=== PATIENT | female | born 1940 | race Caucasian/White ===

== ENCOUNTER 2021-12-22 06:20 | Inpatient (IN) | payer MEDICARE ==
[~2021-12-22] VITALS: Ht 162.6 cm; Wt 83.9 kg
[2021-12-22 07:31] LABS: MEAN CELL VOLUME 103 fl (80.0-100.0); MEAN CORPUSCULAR HGB CONC 31 g/dl (33.0-37.0); MEAN PLATELET VOLUME 10.1 fl (7.4-10.4); PLATELET COUNT 199 K/mm3 (130-400); RED BLOOD COUNT 2.87 M/mm3 (4.10-5.30); REDCELL DISTRIBUTION WIDTH-CV 16.5 % (11.5-14.5)
[2021-12-22 07:32] LABS: HEMATOCRIT 29.6 % (37.0-47.0); HEMOGLOBIN 9.1 g/dl (12.5-16.0); MEAN CORPUSCULAR HEMOGLOBIN 32 pg (27-31)
[2021-12-22 07:39] LABS: INR 1.7 (0.8-3.0); PROTHROMBIN TIME 19.2 SECONDS (9.7-12.8)
[2021-12-22 07:41] LABS: PARTIAL THROMBOPLASTIN TIME 33.8 SECONDS (26.0-37.0)
[2021-12-22 07:45] LABS: CALCIUM 8.7 mg/dL (8.4-10.2); CREATININE, serum 2.5 mg/dL (0.57-1.11); POTASSIUM 4.3 mmol/L (3.5-4.5)
[2021-12-22] MEDS ORDERED: MIRAPEX0.5 MG PO (07:46)
[2021-12-22] MEDS ORDERED: LASIX 20MG TABL20 MG PO (07:50)
[2021-12-22] MEDS ORDERED: ZYLOPRIM 100MG100 MG PO (07:51)
[2021-12-22] MEDS ORDERED: PROAIR HFA0.09 MG/AC IH (07:51)
[2021-12-22] MEDS ORDERED: ELIQUIS 2.5 PO (07:52)
[2021-12-22] MEDS ORDERED: ASPIRIN 81M81 MG/TA2 PO (07:52)
[2021-12-22] MEDS ORDERED: TESSALON P100 MG/CAP PO (07:53)
[2021-12-22] MEDS ORDERED: LIPITOR 10MG10 MG PO (07:53)
[2021-12-22] MEDS ORDERED: FLOVENT 44MCG I13 GM IH (07:54)
[2021-12-22] MEDS ORDERED: COREG12.5 MG PO (07:54)
[2021-12-22] MEDS ORDERED: K-DUR 10 MEQ T10 MEQ PO (07:55)
[2021-12-22] MEDS ORDERED: PRILOSEC 20MG20 MG PO (07:55)
[2021-12-22 08:05] VITALS: BP 120/69; PULSE 88; TEMP 98
--- NOTE | 2021-12-22 10:07 | NUR ---
Procedure cancelled per Dr Ng.Pt to be admitted,awaiting bed assignment.Family at bedside.
--- NOTE | 2021-12-22 11:45 | NUR ---
RECIEVED REPORT FROM APURVA IN [facility].
--- NOTE | 2021-12-22 12:44 | NUR ---
PT ARRIVED TO ROOM VIA WHEELCHAIR. PT TRANSFERED TO RECLINER IN ROOM. VSS. ASSESSMENT COMPLETE.
--- NOTE | 2021-12-22 12:50 | NUR ---
Pt to room 316,report to ANTONY Gray.
[2021-12-22 14:32] LABS: CALCIUM 8.4 mg/dL (8.4-10.2); CREATININE, serum 2.51 mg/dL (0.57-1.11); POTASSIUM 4.2 mmol/L (3.5-4.5); TOTAL PROTEIN 5.6 gm/dL (6.2-8.1)
[2021-12-22 14:41] LABS: MAGNESIUM 2.2 mg/dL (1.6-2.6)
[2021-12-22 16:19] VITALS: BP 129/78; PULSE 91; TEMP 98.3
[2021-12-22 16:20] LABS: PARTIAL THROMBOPLASTIN TIME 32.8 SECONDS (26.0-37.0)
[2021-12-22 20:27] VITALS: BP 136/65; PULSE 79; TEMP 97.9
--- NOTE | 2021-12-22 20:30 | NUR ---
Initial shift assessment done- has generalized edema, edema lower ext, bilateral arm edema- pt states it looks better, pt on lasix drip at 11cc/hr, also on heparin drip at 17cc/hr-- has next hepXA at 2300 tonight. tele on, Purewick on, o2 at 2L/nc, NPO after MN for lexiscan in AM- states usually takes a Tramadol at bedtime at home-- will call [facility] for order-
[2021-12-23] VITALS (10 sets, daily range): BP systolic 105–144; BP diastolic 56–72; PULSE 63–100; TEMP 97.3–98.3
--- NOTE | 2021-12-23 06:20 | NUR ---
Quiet night- good ouput from [facility] last night,, Lasix drip at 11cc/hr, Heparin drip is now at 14cc/hr next hepxa at 10 am.
[2021-12-23 06:42] LABS: BASO % 0.4 % (0.0-2.0); EOS # 0.3 K/mm3 (0.0-0.7); EOS % 4.9 % (0.0-4.0); GRAN # 4.8 K/mm3 (1.4-6.5); GRAN % 71.5 % (42.2-75.2); LYMPH # 1.1 K/mm3 (1.2-3.4); LYMPH % 16.1 % (20.0-51.0); MEAN CELL VOLUME 106 fl (80.0-100.0); MEAN CORPUSCULAR HGB CONC 31 g/dl (33.0-37.0); MEAN PLATELET VOLUME 10.7 fl (7.4-10.4); MONO # 0.5 K/mm3 (0.1-0.6); MONO % 6.8 % (1.7-9.3); PLATELET COUNT 186 K/mm3 (130-400); REDCELL DISTRIBUTION WIDTH-CV 16.6 % (11.5-14.5)
[2021-12-23 06:48] LABS: HEMATOCRIT 28.5 % (37.0-47.0); HEMOGLOBIN 8.7 g/dl (12.5-16.0); MEAN CORPUSCULAR HEMOGLOBIN 32 pg (27-31)
[2021-12-23 07:17] LABS: CALCIUM 8.6 mg/dL (8.4-10.2); CREATININE, serum 2.35 mg/dL (0.57-1.11); MAGNESIUM 2.2 mg/dL (1.6-2.6); POTASSIUM 4.1 mmol/L (3.5-4.5)
--- NOTE | 2021-12-23 12:27 | NUR ---
mesh worker met with patient to complete discharge plan. Patients daughter Remedios ([phone]) present at bedside. Remedios completes intake as the patient is hard of hearing. Remedios states that the patient lives at home with her dog in [place]. She states that the patient is independent with her ADL's and utilizes a rollator to assist with mobility. Remedios states that the patient is on home oxygen which is managed by [facility]. PCP is Dr. Gemma Bo and she utilizes [facility] for perscriptions. Remedios states that the patient does have a DPOA-HC established listing all 3 of her daughters and has a copy of it at home. She is willing to bring a copy to the hospital next time she visits. Remedios states that since the patients last hospitalization, she has had home health services and "thinks" it is through [facility]. This SW contacted [facility] who confirmed that the patient is on their service for PT/OT needs. They started on October 30 and were seeing the patient x2 per week. Patient has been making progress and had been transitioned to x1 a week. Notifed agency that the patient will most likely come home with new HH orders. Discharge plan: Home with [facility]
[2021-12-23 14:35] LABS: PARTIAL THROMBOPLASTIN TIME 126.7 SECONDS (26.0-37.0)
--- NOTE | 2021-12-23 16:37 | NUR ---
Patient's IV in left AC infiltrated. Heparin gtt. paused for 3hrs d/t Hep Xa. results. Patient currently getting a central line placed. New heparin and lasix gtt. to be hung once patient arrives back to the floor. New heparin rate will be initiated per protocol.
--- NOTE | 2021-12-23 20:00 | NUR ---
Initial shift assessment done- alert,oriented, pleasant, VSS, Right jugular TLC dressing saturated and small amount blood on gown - will change dressing at this time,, Noelle VERMA did come and assess, does have a big clot around site- not disturbed- gauze pressure dressing applied and covered with transparent dressing- will continue to assess, Heparin drip at 12cc/hr, Lasix drip at 11cc/hr--hepxa was just drawn and sent to lab,, tele on- afib,rate controlled,, bruises to arms/chest.
[2021-12-24 00:29] VITALS: BP 114/68; PULSE 78; TEMP 97.8
[2021-12-24 03:36] LABS: MEAN CELL VOLUME 105 fl (80.0-100.0); MEAN CORPUSCULAR HGB CONC 31 g/dl (33.0-37.0); PLATELET COUNT 172 K/mm3 (130-400); RED BLOOD COUNT 2.44 M/mm3 (4.10-5.30); REDCELL DISTRIBUTION WIDTH-CV 16.5 % (11.5-14.5)
[2021-12-24 03:41] LABS: HEMATOCRIT 25.7 % (37.0-47.0); MEAN CORPUSCULAR HEMOGLOBIN 33 pg (27-31)
[2021-12-24 03:53] LABS: ALBUMIN 2.9 gm/dL (3.4-4.8); BILIRUBIN,TOTAL 0.9 mg/dL (0.2-1.2); CALCIUM 8.5 mg/dL (8.4-10.2); CREATININE, serum 2.39 mg/dL (0.57-1.11); POTASSIUM 4.2 mmol/L (3.5-4.5); TOTAL PROTEIN 5.3 gm/dL (6.2-8.1)
[2021-12-24 04:51] VITALS: BP 119/65; PULSE 81; TEMP 97.5
--- NOTE | 2021-12-24 06:07 | NUR ---
Queit night-- has been sleeping well tonight- right neck TLC dressing intact with some drainage on gauze dressing ,but not saturated as was the start of shift. Heparin drip was decreased by 100units-- so now at 1100units/hr, {11cc/hr},, lasix drip at 11cc/hr-
[2021-12-24 07:23] VITALS: BP 109/51; PULSE 71; TEMP 97.5
--- NOTE | 2021-12-24 09:01 | NUR ---
Patient sitting in recliner upon entering the room. Patient appears to be doing well. Drainage present on gauze placed over TLIJ. Patient denies any concerns at this time. Heparin gtt. and lasix gtt. still infusing. Purewick in place, patient tolerating this well.
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
[2021-12-24 11:40] VITALS: BP 90/73; PULSE 94; TEMP 97.5
--- NOTE | 2021-12-24 13:41 | NUR ---
Patient sitting in th recliner and resting. Has not addressed any concerns. Heparin gtt. held for 1hr per protocol, and decreased 200 units/hr.
[2021-12-24 15:37] VITALS: BP 113/51; PULSE 76; TEMP 98
[2021-12-24 20:34] VITALS: BP 119/52; PULSE 78; TEMP 98
--- NOTE | 2021-12-24 23:42 | NUR ---
HepXa drawn @2230 0.29, rate increased to 1000 units/hr @2335 per protocol, next level ordered for 0702
[2021-12-25] VITALS (7 sets, daily range): BP systolic 91–124; BP diastolic 44–79; PULSE 66–114; TEMP 97.8–98.3
[2021-12-25 06:36] LABS: MEAN CELL VOLUME 108 fl (80.0-100.0); MEAN CORPUSCULAR HGB CONC 30 g/dl (33.0-37.0); MEAN PLATELET VOLUME 10.7 fl (7.4-10.4); PLATELET COUNT 184 K/mm3 (130-400); REDCELL DISTRIBUTION WIDTH-CV 16.5 % (11.5-14.5)
[2021-12-25 06:44] LABS: HEMOGLOBIN 8.2 g/dl (12.5-16.0); MEAN CORPUSCULAR HEMOGLOBIN 33 pg (27-31)
[2021-12-25 06:58] LABS: ALBUMIN 2.9 gm/dL (3.4-4.8); BILIRUBIN,TOTAL 1.1 mg/dL (0.2-1.2); CALCIUM 8.8 mg/dL (8.4-10.2); CREATININE, serum 2.43 mg/dL (0.57-1.11); POTASSIUM 4.1 mmol/L (3.5-4.5); TOTAL PROTEIN 5.6 gm/dL (6.2-8.1)
--- NOTE | 2021-12-25 08:13 | NUR ---
Patient sitting in bed eating breakfast upon entering the room. Patient denies any concerns at this time. Heparin gtt. and Lasix gtt. both running at ordered rates. Next Hep Xa scheduled for 1135. Morning medications administered. Patient has call light w/in reach. Purewick in place for urinary incontinence/frequency d/t lasix gtt.
--- NOTE | 2021-12-25 18:38 | NUR ---
Heparin gtt. discontinued per orders. Patient doing well and currently sitting in the recliner. Patient has no concerns.
--- NOTE | 2021-12-25 22:41 | NUR ---
ALERT ANDO X4. DENIES SOA, CHEST PAIN OR DIZZY. EDEMA NOTED.LASIX GTT DC, IV PUSH STARTED. TELE-AFIB. 2L O2. PUEWICK IN OF THE NIGHT. POC DISCUSSED. CALL LIGHT WI REACH.
[2021-12-26 04:02] VITALS: BP 103/58; PULSE 87; TEMP 98.2
--- NOTE | 2021-12-26 05:44 | NUR ---
RESTED THROUGH THE NIGHT WITHOUT INCIDENT. LABS DRAW FROM TRIPLE IJ THIS AM. NEEDS MET.
[2021-12-26 07:02] LABS: BASO # 0.1 K/mm3 (0.0-0.2); BASO % 0.8 % (0.0-2.0); EOS # 0.3 K/mm3 (0.0-0.7); EOS % 4.4 % (0.0-4.0); GRAN # 4.5 K/mm3 (1.4-6.5); GRAN % 72.2 % (42.2-75.2); LYMPH # 0.9 K/mm3 (1.2-3.4); LYMPH % 13.8 % (20.0-51.0); MEAN CELL VOLUME 105 fl (80.0-100.0); MEAN CORPUSCULAR HGB CONC 31 g/dl (33.0-37.0); MEAN PLATELET VOLUME 10.8 fl (7.4-10.4); MONO # 0.5 K/mm3 (0.1-0.6); MONO % 8.6 % (1.7-9.3); PLATELET COUNT 182 K/mm3 (130-400); RED BLOOD COUNT 2.47 M/mm3 (4.10-5.30); REDCELL DISTRIBUTION WIDTH-CV 16.5 % (11.5-14.5)
[2021-12-26 07:08] LABS: HEMATOCRIT 25.8 % (37.0-47.0); MEAN CORPUSCULAR HEMOGLOBIN 32 pg (27-31)
[2021-12-26 07:16] LABS: CREATININE, serum 2.26 mg/dL (0.57-1.11)
[2021-12-26 07:41] VITALS: BP 100/56; PULSE 65; TEMP 97.5
--- NOTE | 2021-12-26 10:09 | NUR ---
PATIENT RESTING IN BED. COMPLAINTS OF LACK OF SLEEP DUE TO FREQUENT URINATION. LUNGS CLEAR. SWALLOWS PILLS WHOLE WITH SIPS OF WATER. FIRM, WARM, AND RED AREA SURROUNDING LEFT ELBOW, NO COMPLAINTS OF PAIN. PATIENT STATES SHE CAN FEEL IT IF THERE IS STILL AN IV IN THAT LOCATION. PITTING EDEMA IN LOWER EXTREMITIES UP TO TRUNK. PATIENT TO WORK WITH THERAPY. PATIENT STATES THEY ARE MAKING URINE WITH NO PAIN OR DISCOMFORT. LASIX DRIP CHANGED TO IVP LASIX. WILL RE WRAP LLE WITH ELSY BANDAGES PER PHYSCIAN ORDER.
[2021-12-26 11:34] VITALS: BP 110/59; PULSE 101; TEMP 97.2
[2021-12-26 15:09] VITALS: BP 102/49; PULSE 85; TEMP 97.6
--- NOTE | 2021-12-26 17:37 | NUR ---
PATIENT STATING THAT SHE FEELS MUCH BETTER TODAY. NO COMPLAINTS OF PAIN, NO DIFFICULTY BREATHING. NO PRESSURE INCREASING FROM FLUID. ASKED THAT ONLY LLE BE ELSY WRAPPED. LUE AT ELBOW RED, SWOLLEN, AND FIRM. WARM COMPRESS OR ICE IF COMPLAINTS OF PAIN. AMBULATED WELL WITH THERAPY. ENCOURAGE TO USE BEDSIDE COMMODE OR TOLIET FOR VOIDING, PUREWICK NOT A RECOMMENDED SNF SOLUTION. PATIENT INDEPENDENT AT HOME.
[2021-12-26 19:50] VITALS: BP 90/47; PULSE 76; TEMP 98
[2021-12-26 23:20] VITALS: BP 98/58; PULSE 62; TEMP 97.5
[2021-12-27] VITALS (16 sets, daily range): BP systolic 90–995; BP diastolic 30–63; PULSE 62–106; TEMP 97.4–98.3
[2021-12-27 04:38] LABS: BASO % 0.5 % (0.0-2.0); EOS # 0.3 K/mm3 (0.0-0.7); EOS % 4.5 % (0.0-4.0); GRAN # 4.2 K/mm3 (1.4-6.5); GRAN % 70.7 % (42.2-75.2); LYMPH # 0.9 K/mm3 (1.2-3.4); LYMPH % 14.5 % (20.0-51.0); MEAN CELL VOLUME 105 fl (80.0-100.0); MEAN CORPUSCULAR HGB CONC 31 g/dl (33.0-37.0); MEAN PLATELET VOLUME 10.4 fl (7.4-10.4); MONO # 0.6 K/mm3 (0.1-0.6); MONO % 9.5 % (1.7-9.3); PLATELET COUNT 180 K/mm3 (130-400); RED BLOOD COUNT 2.34 M/mm3 (4.10-5.30); REDCELL DISTRIBUTION WIDTH-CV 16.5 % (11.5-14.5)
[2021-12-27 04:56] LABS: HEMATOCRIT 24.5 % (37.0-47.0); HEMOGLOBIN 7.6 g/dl (12.5-16.0); MEAN CORPUSCULAR HEMOGLOBIN 32 pg (27-31)
[2021-12-27 04:59] LABS: CALCIUM 8.9 mg/dL (8.4-10.2); CREATININE, serum 2.45 mg/dL (0.57-1.11); MAGNESIUM 1.9 mg/dL (1.6-2.6); POTASSIUM 4.1 mmol/L (3.5-4.5)
--- NOTE | 2021-12-27 06:36 | NUR ---
pt on 2L O2 tonight, requested pain med @ HS x1, slept fairly well tonight. TLIJ in right neck patent/secure.
--- NOTE | 2021-12-27 10:30 | NUR ---
PATIENT RESTING IN BED. NO COMPLAINTS OF PAIN. FIRMNESS SURROUNDING LEFT ELBOW REDUCED DISTALLY, PROXIMAL STILL FIRM, WARM AND RED. SOME RED STREAKING ON THE INNER BEND OF THE ELBOW. UNLEAR IF MOISTURE RELATED OR FROM REMOVED IV INFILTRATION SITE. PATIENT EXPRESSES FEELING WEAK AND MORE TIRED THIS MORNING. LOWER EXTREMITIES UNWRAPPED, WILL REWRAP LATER IN THE MORNING. WORKED WITH THERAPY. REPORTS OF LOOSE STOOLS FROM PCT. SWALLOWED PILLS WHOLE WITH WATER, NO CONCERNS.
[2021-12-27 12:20] LABS: ARTERIAL BLD GAS O2 SATURATION 96.9 % (92-100); ARTERIAL BLD GAS TCO2 CT 45.9; ARTERIAL BLOOD GAS BASE EXCESS 16.6 (-2-2); ARTERIAL BLOOD GAS HCO3 43.6 meq/L (22-26); ARTERIAL BLOOD GAS PO2 110.6 mmHg (80-100); ARTERIAL BLOOD GAS pH 7.39 (7.35-7.45)
--- NOTE | 2021-12-27 12:33 | NUR ---
PATIENT RESTING IN BED, REVIEWED BLOOD ADMIN REACTION SYMPTOMS. VERIFIED UNIT, STARTED AT 60MLS/HR WITH SALINE FLUSH BAG HANGING. REMINED BEDSIDE FOR FIRST 20MIN OF ADMINISTRATION. WILL MONITOR PATIENT STATUS.
--- NOTE | 2021-12-27 19:04 | NUR ---
PATIENT RESTING COMFORTABLY IN BED. NO COMPLAINTS OF PAIN. ONE UINT OF PRBC GIVEN TODAY. NO REACTIONS NOTED. BPS VERY SOFT TODAY. PROVIDER INITIATED PARAMETERS FOR LASIX, JARDIANCE AND COREG. PATIENT ASYMPTOMATIC WITH LOW PRESSURES. BIPAP TRIALS AT NIGHT.
[2021-12-28 03:59] VITALS: BP 107/53; PULSE 74; TEMP 98.3
--- NOTE | 2021-12-28 05:44 | NUR ---
RESTED THROUGH THE NIGHT WITHOUT INCIDENT. PT REFUSED BIPAP TRIAL OVER NIGHT. ATTEMPTED BY RT TWICE.
[2021-12-28 06:09] LABS: BASO # 0.1 K/mm3 (0.0-0.2); BASO % 0.8 % (0.0-2.0); EOS # 0.4 K/mm3 (0.0-0.7); EOS % 5.6 % (0.0-4.0); GRAN # 4.7 K/mm3 (1.4-6.5); GRAN % 71.9 % (42.2-75.2); LYMPH # 0.8 K/mm3 (1.2-3.4); LYMPH % 11.4 % (20.0-51.0); MEAN CELL VOLUME 107 fl (80.0-100.0); MEAN CORPUSCULAR HGB CONC 30 g/dl (33.0-37.0); MEAN PLATELET VOLUME 10.7 fl (7.4-10.4); MONO # 0.7 K/mm3 (0.1-0.6); PLATELET COUNT 185 K/mm3 (130-400); RED BLOOD COUNT 2.86 M/mm3 (4.10-5.30); REDCELL DISTRIBUTION WIDTH-CV 18.7 % (11.5-14.5)
[2021-12-28 06:11] LABS: HEMATOCRIT 30.6 % (37.0-47.0); HEMOGLOBIN 9.1 g/dl (12.5-16.0); MEAN CORPUSCULAR HEMOGLOBIN 32 pg (27-31)
[2021-12-28 06:21] LABS: CALCIUM 8.9 mg/dL (8.4-10.2); CREATININE, serum 2.4 mg/dL (0.57-1.11); POTASSIUM 3.8 mmol/L (3.5-4.5)
[2021-12-28 07:29] VITALS: BP 105/60; PULSE 51; TEMP 97.7
--- NOTE | 2021-12-28 11:19 | NUR ---
PATIENT WORKED WITH THERAPY THIS MORNING. SITTING UPRIGHT IN CHAIR. LEGS ELEVATED. LEGS WILL BE REWRAPPED WITH ELSY BANDAGES. PITTING EDEMA IMPROVED. PRODUCTIVE COUGH THIS MORNING. NO COMPLAINTS OF PAIN OR SHORTNESS OF BREATH. PLAN TO DISCHARGE TO SNF TODAY OR TOMORROW, PENDING ACCEPTANCE. PURWICK IN PLACE, PATIENT UNWILLING TO REMOVE FOR EASE OF CONSTANT URINATION FROM LASIX. PATIENT NOT CURRENTLY ALLOWING AUTHOR TO VIEW BOTTOM OR BACK. WILL ATTEMPT WITH REAMBULATION BACK TO BED LATER.
[2021-12-28 11:43] VITALS: BP 96/52; PULSE 63; TEMP 98.5
--- NOTE | 2021-12-28 14:15 | NUR ---
Ditch Digger spoke with Sarai, IPR Director who advised she is following patient. SW met with patient who stated she was agreeable to rehab when SW explained what that entails, however patient states she just wants out of here.
--- NOTE | 2021-12-28 15:23 | NUR ---
Ux Researcher collaborated with Sarai, IPR Director who advised she is going to decline patient at this time. Patient likely not able to tolerate three hours of therapy daily. Patient suggested Sarai call her daughter, Remedios to review discharge planning options. SW contacted Remedios and reviewed other rehab options. Remedios would like referrals sent to [facility] and [facility]. Patient has been to [facility] before. Remedios advised if both these places will not accept, she would be open to SNFs in [place]. Discharge Plan: SNF vs [facility]
[2021-12-28 15:51] VITALS: BP 92/42; PULSE 74; TEMP 97.3
--- NOTE | 2021-12-28 16:36 | NUR ---
PATIENT HAS REDNESS AND SKIN DEBRIS IN LOWER ABDOMEN SKIN FOLDS AND JUNCTURE OF INNER THIGHS. MOISTURE RELATED. MOSITURE BARRIER CREAM AND POWDER APPLIED. PATIENT ALSO HAS NON-BLANCHABLE REDNESS ON SACRUM. WITH BLANCHABLE REDNESS ON SURROUNDING ANUS. PATIENT EDUCATED, TURNING AND WEDGES APPLIED TO RELIEVE PRESSURE. WRAPS APPLIED TO B/L LLE FROM TOES TO KNEES. HEELS FLOATED. PROVIDER NOTIFIED. AUTHOR UNCOMFORTABLE WITH APPLYING MEPALEX FOAM DRESSING TO SACRUM, PATIENT HAVING MOISTURE SKIN ISSUES.
--- NOTE | 2021-12-28 17:42 | NUR ---
PATIENT AMBULATED TO AND FROM RECLINER. BOTTOM RED, NON-BLANCHABLE ON SACRUM. PATIENT EDUCATED TO TURN AND REPOSITION EVERY 2 HOURS. WITH PILLOWS UNDER HIPS. INCREASED PRODUCTIVE COUGH TODAY. DID NOT TOLERATE BIPAP OVER NIGHT. PLAN TO TRANSFER TO [facility] OR [facility] IN THE NEXT DAY OR TWO LONG H&H STAY STABLE. STOOL OCCULT NEGATIVE. NO SIGNIFICANT EVENTS THIS SHIFT.
[2021-12-28 19:55] VITALS: BP 111/43; PULSE 64; TEMP 97.6
[2021-12-28 23:14] VITALS: BP 99/47; PULSE 71; TEMP 98
[2021-12-29 03:52] VITALS: BP 111/54; PULSE 79; TEMP 97.8
--- NOTE | 2021-12-29 05:39 | NUR ---
PATIENT CONTINUES NOT TO WEAR B-PAP AT NIGHT, INSTEAD USING 1L 02 VIA NC. NO S/S OF SOB OR DISTRESS NOTED. PATIENT WAS SLIGHTLY CONFUSED THIS MORNING WITH MED PASS. ABLE TO REDIRECT PATIENT. TURNING AND REPOSITIONING ENCORUAGED THROUGHOUT SHIFT. APPLIED POWDER TO FOLDS ALSO PATIENT WEARING BREIF AND REFUSING TO MOVE. BILAT LE ELEVATED ON 2 PILLOWS WHILE SLEEPING. WILL CONTINUE TO MONITOR THROUGHOUT SHIFT.
[2021-12-29 06:02] LABS: BASO % 0.4 % (0.0-2.0); EOS # 0.4 K/mm3 (0.0-0.7); EOS % 5.2 % (0.0-4.0); GRAN % 73.8 % (42.2-75.2); LYMPH # 0.8 K/mm3 (1.2-3.4); LYMPH % 11.4 % (20.0-51.0); MEAN CELL VOLUME 108 fl (80.0-100.0); MEAN CORPUSCULAR HGB CONC 29 g/dl (33.0-37.0); MEAN PLATELET VOLUME 10.5 fl (7.4-10.4); MONO # 0.6 K/mm3 (0.1-0.6); MONO % 8.9 % (1.7-9.3); PLATELET COUNT 191 K/mm3 (130-400); RED BLOOD COUNT 2.91 M/mm3 (4.10-5.30); REDCELL DISTRIBUTION WIDTH-CV 17.6 % (11.5-14.5)
[2021-12-29 06:06] LABS: HEMATOCRIT 31.3 % (37.0-47.0); HEMOGLOBIN 9.2 g/dl (12.5-16.0); MEAN CORPUSCULAR HEMOGLOBIN 32 pg (27-31)
[2021-12-29 06:22] LABS: CALCIUM 8.8 mg/dL (8.4-10.2); CREATININE, serum 2.34 mg/dL (0.57-1.11); POTASSIUM 3.9 mmol/L (3.5-4.5)
--- NOTE | 2021-12-29 06:30 | NUR ---
Called senior controls technician Darvin Hernandez in regards to critical C02 42 and chloride 88. left message pending call back.
[2021-12-29 07:17] VITALS: BP 125/83; PULSE 76; TEMP 97.7
--- NOTE | 2021-12-29 10:37 | NUR ---
PT WAS ADJUSTED TO SIT UP IN BED TO EAT BREAKFAST THIS MORNING. TOOK MORNING MEDICATIONS WELL. ALERT AND ORIENTED X4. ON TELEMETRY AFIB, CONTROLLED.
[2021-12-29] MEDS ORDERED: JARDIANCE10 PO (10:55)
[2021-12-29] MEDS ORDERED: DIAMOX 250MG250 MG PO (10:55)
--- NOTE | 2021-12-29 11:49 | NUR ---
REPORT GIVEN TO RN AT [facility] [place] THIS MORNING.
--- NOTE | 2021-12-29 12:52 | NUR ---
DISCONTINUED CENTRAL LINE BEFORE DISCHARGE. PATIENT TOLERATED WELL. CATHETER TIP INTACT. HELD PRESSURE FOR 10 MINUTES UNTIL HEMOSTASIS ACHIEVED. PATIENT FLAT TIME COMPLETE.
--- NOTE | 2021-12-29 12:56 | NUR ---
AGREE WITH TAYLORS'S ASSESSMENTS AND PROCEEDURES COMPLETED. PT TOLERATED WELL.
--- NOTE | 2021-12-29 13:14 | NUR ---
Middleware Developer received a voicemail from patient's daughter requesting referrals be sent to [facility] as she would prefer patient stay in [place] as her sister lives in [place] as that's where her clinical trials specialist is located. [facility] Francheska from [facility] contacted VANDANA and advised they can accept patient today. VANDNAA met with patient and patient's daughter, Remedios at bedside and this is their preference. VANDANA presented and reviewed IM form with patient who verbalized understanding and provided signature. VANDANA placed form in chart then provided copy to patient. VANDANA spoke with Francheska and set transport time for 1230. VANDANA also obtained information for patient's secondary insurance provider [employer] and provided it to Francheska who advised her team ran this coverage and it will pickers material handlers the 20% that Medicare does not cover after day 7. Patient used some of her skilled days at [facility]. VANDANA contacted [facility] and obtained the number of days, then provided it to Francheska. VANDANA faxed negative covid results and discharge orders to Francheska at [facility]. VANDANA contacted Lindsay at [facility] and left her a message that patient discharged to a different facility based on their preferences. Discharge Plan: [facility]
== END 2021-12-29 13:08 | DRG 291 ==
LOC: COL.CAR 06:20 → MEDICAL 13:27 → COL.CAR 15:23 → MEDICAL 15:24
PROVIDERS: Family Medicine; Internal Medicine Cardiovascular Disease; Physician Assistant; Surgery; ADMIT Family Medicine
PROC: 05HM33Z Insertion of Infusion Device into Right Internal Jugular Vein, Percutaneous Approach (ICD-10-PCS; principal; 2021-12-23 16:30)
PROC: 5A09357 Assistance with Respiratory Ventilation, Less than 24 Consecutive Hours, Continuous Positive Airway Pressure (ICD-10-PCS; 2021-12-27)
DX: I13.0 Hypertensive heart and chronic kidney disease with heart failure and stage 1 through stage 4 chronic kidney disease, or unspecified chronic kidney disease (principal); I50.23 Acute on chronic systolic (congestive) heart failure; J96.11 Chronic respiratory failure with hypoxia; N17.9 Acute kidney failure, unspecified; E87.3 Alkalosis; I48.20 Chronic atrial fibrillation, unspecified; Z66 Do not resuscitate; I25.10 Atherosclerotic heart disease of native coronary artery without angina pectoris; N18.9 Chronic kidney disease, unspecified; K21.9 Gastro-esophageal reflux disease without esophagitis; E78.5 Hyperlipidemia, unspecified; M10.9 Gout, unspecified; G25.81 Restless legs syndrome; D53.9 Nutritional anemia, unspecified; K76.1 Chronic passive congestion of liver; I42.9 Cardiomyopathy, unspecified; Z20.822 Contact with and (suspected) exposure to COVID-19; Z23 Encounter for immunization
CPT/HCPCS: 99223-AI; 99232-AI; 99233-AI; 99239; A9270; A9500; J1644; J1940; J2785; P9016

== ENCOUNTER → 2022-01-01 | Outpatient (REF) ==
[~2022-01-01] MED LIST: ASPIRIN 81M81 MG/TA2 PO; COREG12.5 MG PO; DIAMOX 250MG250 MG PO; ELIQUIS 2.5 PO; FLOVENT 44MCG I13 GM IH; JARDIANCE10 PO; K-DUR 10 MEQ T10 MEQ PO; LASIX 20MG TABL20 MG PO; LIPITOR 10MG10 MG PO; MIRAPEX0.5 MG PO; PRILOSEC 20MG20 MG PO; PROAIR HFA0.09 MG/AC IH; TESSALON P100 MG/CAP PO; ZYLOPRIM 100MG100 MG PO
[2022-01-01 15:07] LABS: BASO # 0.1 K/mm3 (0.0-0.2); BASO % 0.8 % (0.0-2.0); EOS # 0.3 K/mm3 (0.0-0.7); EOS % 4.6 % (0.0-4.0); GRAN # 4.6 K/mm3 (1.4-6.5); GRAN % 74.1 % (42.2-75.2); LYMPH # 0.5 K/mm3 (1.2-3.4); LYMPH % 8.8 % (20.0-51.0); MEAN CELL VOLUME 104 fl (80.0-100.0); MEAN CORPUSCULAR HGB CONC 31 g/dl (33.0-37.0); MEAN PLATELET VOLUME 10.6 fl (7.4-10.4); MONO # 0.7 K/mm3 (0.1-0.6); MONO % 11.4 % (1.7-9.3); PLATELET COUNT 203 K/mm3 (130-400); RED BLOOD COUNT 3.07 M/mm3 (4.10-5.30); REDCELL DISTRIBUTION WIDTH-CV 17.8 % (11.5-14.5)
[2022-01-01 15:15] LABS: HEMATOCRIT 31.8 % (37.0-47.0); HEMOGLOBIN 9.7 g/dl (12.5-16.0); MEAN CORPUSCULAR HEMOGLOBIN 32 pg (27-31)
[2022-01-01 15:36] LABS: CALCIUM 8.5 mg/dL (8.4-10.2); CREATININE, serum 2.6 mg/dL (0.57-1.11); POTASSIUM 3.5 mmol/L (3.5-4.5)
== END ==
LOC: ZCOL.LAB 10:04
PROVIDERS: Internal Medicine
DX: I50.23 Acute on chronic systolic (congestive) heart failure (principal)

== ENCOUNTER → 2022-01-06 | Outpatient (REF) ==
[2022-01-06 08:50] LABS: CREATININE, serum 2.21 mg/dL (0.57-1.11); POTASSIUM 3.7 mmol/L (3.5-4.5)
== END ==
LOC: ZCOL.LAB 08:16
PROVIDERS: Neurological Surgery
DX: I13.0 Hypertensive heart and chronic kidney disease with heart failure and stage 1 through stage 4 chronic kidney disease, or unspecified chronic kidney disease (principal); N17.9 Acute kidney failure, unspecified; N18.9 Chronic kidney disease, unspecified; I50.9 Heart failure, unspecified

== ENCOUNTER → 2022-02-23 | Outpatient (CLI) | payer MEDICARE ==
[2022-02-23 20:11] LABS: BASO % 0.4 % (0.0-2.0); EOS # 0.3 K/mm3 (0.0-0.7); EOS % 3.9 % (0.0-4.0); GRAN # 6.2 K/mm3 (1.4-6.5); GRAN % 80.8 % (42.2-75.2); LYMPH # 0.6 K/mm3 (1.2-3.4); LYMPH % 8.1 % (20.0-51.0); MEAN CELL VOLUME 105 fl (80.0-100.0); MEAN CORPUSCULAR HGB CONC 32 g/dl (33.0-37.0); MEAN PLATELET VOLUME 10.3 fl (7.4-10.4); MONO # 0.5 K/mm3 (0.1-0.6); MONO % 6.5 % (1.7-9.3); PLATELET COUNT 283 K/mm3 (130-400); REDCELL DISTRIBUTION WIDTH-CV 14.8 % (11.5-14.5)
[2022-02-23 20:12] LABS: HEMATOCRIT 25.1 % (37.0-47.0); HEMOGLOBIN 8.1 g/dl (12.5-16.0); MEAN CORPUSCULAR HEMOGLOBIN 34 pg (27-31)
[2022-02-23 20:50] LABS: BILIRUBIN,TOTAL 0.9 mg/dL (0.2-1.2); CALCIUM 8.6 mg/dL (8.4-10.2); CREATININE, serum 2.63 mg/dL (0.57-1.11); POTASSIUM 3.6 mmol/L (3.5-4.5)
== END ==
LOC: ZCOL.LAB 16:40
PROVIDERS: Internal Medicine
DX: I50.23 Acute on chronic systolic (congestive) heart failure (principal)

== ENCOUNTER 2022-03-31 09:24 | Inpatient (IN) | payer MEDICARE ==
[2022-03-31] VITALS (60 sets, daily range): BP systolic 74–98; BP diastolic 41–68; PULSE 60–86; TEMP 96.2–98.1; O2SAT 90–99
[~2022-03-31] VITALS: Ht 162.6 cm; Wt 107.3 kg
[2022-03-31 09:47] LABS: BASO % 0.1 % (0.0-2.0); EOS # 0.3 K/mm3 (0.0-0.7); EOS % 4.3 % (0.0-4.0); GRAN # 5.6 K/mm3 (1.4-6.5); GRAN % 79.5 % (42.2-75.2); LYMPH # 0.5 K/mm3 (1.2-3.4); LYMPH % 7.3 % (20.0-51.0); MEAN CELL VOLUME 109 fl (80.0-100.0); MEAN CORPUSCULAR HGB CONC 31 g/dl (33.0-37.0); MEAN PLATELET VOLUME 10.8 fl (7.4-10.4); MONO # 0.6 K/mm3 (0.1-0.6); MONO % 8.2 % (1.7-9.3); PLATELET COUNT 189 K/mm3 (130-400)
[2022-03-31 09:52] LABS: HEMATOCRIT 21.8 % (37.0-47.0); MEAN CORPUSCULAR HEMOGLOBIN 34 pg (27-31)
[2022-03-31 09:54] LABS: HEMOGLOBIN 6.7 g/dl (12.5-16.0)
[2022-03-31 10:03] LABS: ALBUMIN 2.8 gm/dL (3.4-4.8); BILIRUBIN,TOTAL 0.7 mg/dL (0.2-1.2); CALCIUM 8.4 mg/dL (8.4-10.2); CREATININE, serum 5.49 mg/dL (0.57-1.11); TOTAL PROTEIN 5.8 gm/dL (6.2-8.1)
[2022-03-31 14:26] LABS: HEMATOCRIT 24.4 % (37.0-47.0); HEMOGLOBIN 7.9 g/dl (12.5-16.0)
[2022-03-31 14:32] LABS: COLLECTION METHOD CLEAN CATCH
[2022-03-31] MEDS ORDERED: PRILOTC (14:42)
[2022-03-31] MEDS ORDERED: NEURONTIN100 MG/CAP PO (14:42)
[2022-03-31] MEDS ORDERED: MELATIN 3 MG-11 TAB PO (14:44)
[2022-03-31] MEDS ORDERED: TYLENOL 325MG325 MG PO (14:44)
[2022-03-31] MEDS ORDERED: NYSTATIN OR100 MU/ML PO (14:44)
[2022-03-31 14:47] LABS: MUCOUS Present (NOT PRESENT); PH 5 (5-8); SQUAMOUS EPITHELIAL 0-2 /hpf (0-10); URINE APPEARANCE Hazy (CLEAR/HAZY); URINE BACTERIA Moderate /hpf (NONE SEEN); URINE BLOOD Negative (NEGATIVE); URINE COLOR Yellow (YELLOW); URINE GLUCOSE Negative (NEGATIVE); URINE KETONE Negative (NEGATIVE); URINE NITRATE Negative (NEGATIVE); URINE PROTEIN(semi-quant) 2+ (NEGATIVE); URINE UROBILINOGEN Negative (NEGATIVE)
--- NOTE | 2022-03-31 19:50 | NUR ---
Pt. laying in bed with eyes closed respirations shallow. BP low, and difficulty getting temp. DANYELL Reese notified. Pt.'s daughter informed of pt.'s condition. DANYELL Reese also called pt.'s daughter. Shift assessment complete. Pt. is not very responsive, requiring sturnal chest rub to arouse pt. Pt. does moan and gimice from time to time. Unable to give pain meds d/t low BP. Will monitor.
--- NOTE | 2022-03-31 19:57 | NUR ---
Attempted to get a temp on pt. Axillary at 89.9. Used temporal- 95.1. Mary Ann notified. Applied warm blankets. Waiting for bear hugger.
--- NOTE | 2022-03-31 20:10 | NUR ---
Yehuda oh placed on pt.
--- NOTE | 2022-03-31 22:00 | NUR ---
Pt. not improving. Decision to transfter to ICU. Daughter called and informed of transfer. report called to ANTONY Worrell.
--- NOTE | 2022-03-31 22:30 | NUR ---
Pt. transfurred to ICU 8.
--- NOTE | 2022-03-31 22:45 | NUR ---
PT ARRIVED TO ICU ROOM VIA BED. MOVED TO ICU BED WITH SLIDING BOARD. CONNECTED TO ICU MONITORING. VSS, TEMP LOW AT 96.3, ROLAN HUGGER REPLACED (HAD BEEN USED UPSTAIRS). NS TO FELICIA PICC, LEVOPHED READY TO START WHEN NEEDED. WILL CONTINUE TO MONITOR.
[2022-04-01] VITALS (1439 sets, daily range): BP systolic 93–102; BP diastolic 51–69; PULSE 76–93; TEMP 96.7–98.4; O2SAT 72–100
--- NOTE | 2022-04-01 01:08 | NUR ---
REPORT GIVEN TO ANTONY HERMAN TO ASSUME CARE OF PT AT THIS TIME.
[2022-04-01 05:33] LABS: MEAN CORPUSCULAR HGB CONC 32 g/dl (33.0-37.0); MEAN PLATELET VOLUME 10.5 fl (7.4-10.4); PLATELET COUNT 198 K/mm3 (130-400); RED BLOOD COUNT 2.13 M/mm3 (4.10-5.30); REDCELL DISTRIBUTION WIDTH-CV 17.1 % (11.5-14.5)
[2022-04-01 05:43] LABS: HEMATOCRIT 22.2 % (37.0-47.0); MEAN CELL VOLUME 107 fl (80.0-100.0); MEAN CORPUSCULAR HEMOGLOBIN 33 pg (27-31)
[2022-04-01 05:47] LABS: CALCIUM 8.2 mg/dL (8.4-10.2); CREATININE, serum 5.4 mg/dL (0.57-1.11); POTASSIUM 5.1 mmol/L (3.5-4.5)
[2022-04-01 06:44] LABS: ANISOCYTOSIS 1+; BAND 7 % (0-10); HYPOCHROMIA 3+; LYMPHOCYTE 2 % (20.0-51.0); NEUTROPHILS 87 % (42.0-75.2); PLATELET ESTIMATE NORMAL (NORMAL)
--- NOTE | 2022-04-01 08:29 | NUR ---
PICC intact right upper arm with large amount of serrous reddish drainage noted. sterile dressing change done with a thrombin patch applied, skin prep, stat lock, chg patch, and tegaderm applied. no further drainage noted.
--- NOTE | 2022-04-01 11:00 | NUR ---
LEVO TITRATED TO KEEP MAP GREATER THAN 65. AWARE.
--- NOTE | 2022-04-01 13:00 | NUR ---
PT HAS DIFFICULTY SWALLOWING WATER. SPOKE WITH PT'S DAUGHTER AND SHE STATES PT HAD SWALLOWING ISSUES PRIOR TO ADMISSION. NOTIFIED. ORDERS RECEIVED FROM SPEECH AND NPO.
--- NOTE | 2022-04-01 14:09 | NUR ---
Hospice Home Care Coordinator spoke with patient's RN who advised patient is not alert and oriented at this time. SW contacted patient's daughter, Remedios (ph#[phone]) to complete initial intake. Remedios advised she is going to be heading to [place] this weekend for her nephew's wedding, however can be reached by phone. Remedios advised patient's sister, Sherry plans to visit patient in person today. Remedios advised patient is a fpc care resident at [facility] ([facility]) and sees Dr. Kimble for primary care. Patient uses either a walker or wheelchair for ambulation. Patient had a fall resulting in a fracture. Remedios advised plan is for patient to return back to [facility] at time of discharge. Remedios remarked that if patient is unable to have surgery to fix her hip, then they would have patient return to [facility] on hospice. Patient has Advance Directives in EMR which designate her daughters: Remedios Lopez, Tita Kilpatrick, and Abby Thomas as DPOA-HC. VANDANA contacted Francheska at [facility] and faxed updates. VANDANA notified that palliative consult was placed to discuss goals of care as patient will require surgery for her fracture as well as new dialysis. Palliative RN contacted patient's daughter, Remedios for this discussion and SW was a part of the call. Remedios advised they were in the process of initiating dialysis at the [facility] dialysis center prior to patient's fall. Although patient has not been cleared for surgery at this time, Remedios believes it would be her mother's wishes to proceed with surgery and dialysis. VANDANA contacted Francheska at [facility] and Violetta at [facility] to provide update.
--- NOTE | 2022-04-01 15:15 | NUR ---
1400 [address] CON[address] TO [address] HD CATH. SUPPLIES READY. 1430 CALLED THIS RN REGARDING HD CATH. REVIEWED ORDER FROM . STATES HE WILL CALL AYDEN ROMERO TO CLARIFY. 1500 CALLED THIS RN AND STATED WE WILL HOLD OFF AN HD CATH AFTER CONVERSATION WITH AYDEN ROMERO, AND PLAN TO PLACE IN OR WHEN PT GOES FOR HIP SX.
[2022-04-01 18:38] LABS: HEMOGLOBIN 7.4 g/dl (12.5-16.0)
--- NOTE | 2022-04-01 19:32 | NUR ---
PT IN BED AT THIS TIME. SHE HAS AN INTERMITTENT STRONG NON PRODUCTIVE COUGH. SHE HAS NOT BEEN ABLE TO ANSWER ANY QUESTIONS AND UNABLE TO FOLLOW COMMANDS. RN IN ROOM AT THIS TIME
--- NOTE | 2022-04-01 19:53 | NUR ---
BEDSIDE SHIFT REPORT RECEIVED FROM ANTONY RUDD. PT CURRENTLY IN BED RESTING. ALL LINES RUNNING ACCORDING TO REPORT (SEE DRIP FLOWSHEET). PRESLEY DRAINING APPROPRIATELY. CURRENTLY ON 2L OXYMASK. VSS, NO ACUTE CHANGES AT THIS TIME
[2022-04-01 22:18] LABS: ARTERIAL BLD GAS O2 SATURATION 79.6 % (92-100); ARTERIAL BLD GAS TCO2 CT 24.7; ARTERIAL BLOOD GAS BASE EXCESS -5.9 (-2-2); ARTERIAL BLOOD GAS HCO3 22.7 meq/L (22-26); ARTERIAL BLOOD GAS PO2 50.8 mmHg (80-100)
[2022-04-01 22:19] LABS: ARTERIAL BLOOD GAS pH 7.15 (7.35-7.45)
[2022-04-01 22:20] LABS: ARTERIAL BLOOD GAS PCO2 66.2 mmHg (35-45)
[2022-04-02] VITALS (1123 sets, daily range): BP systolic 83–109; BP diastolic 42–67; PULSE 85–104; TEMP 97.7–98; O2SAT 78–100
[2022-04-02 04:42] LABS: MEAN CELL VOLUME 106 fl (80.0-100.0); MEAN CORPUSCULAR HGB CONC 32 g/dl (33.0-37.0); MEAN PLATELET VOLUME 10.8 fl (7.4-10.4); PLATELET COUNT 184 K/mm3 (130-400); RED BLOOD COUNT 2.15 M/mm3 (4.10-5.30); REDCELL DISTRIBUTION WIDTH-CV 16.9 % (11.5-14.5)
[2022-04-02 04:48] LABS: HEMATOCRIT 22.7 % (37.0-47.0); HEMOGLOBIN 7.2 g/dl (12.5-16.0); MEAN CORPUSCULAR HEMOGLOBIN 33 pg (27-31)
[2022-04-02 05:11] LABS: CALCIUM 7.7 mg/dL (8.4-10.2); CREATININE, serum 5.2 mg/dL (0.57-1.11); POTASSIUM 4.9 mmol/L (3.5-4.5)
[2022-04-02 05:20] LABS: ANISOCYTOSIS 1+; BAND 12 % (0-10); LYMPHOCYTE 3 % (20.0-51.0); NEUTROPHILS 82 % (42.0-75.2); NUCLEATED RED BLOOD CELL 2 (0-6); PLATELET ESTIMATE NORMAL (NORMAL)
--- NOTE | 2022-04-02 07:00 | NUR ---
PT RESTING IN BED. PT STILL ON LEVO. PT ON BIPAP. VSS. PT HAS CALL WITHIN REACH. BED ALARM ACTIVE.
--- NOTE | 2022-04-02 10:50 | NUR ---
Call made to patient's daughter, Remedios. She is enroute to [place]; about 3 hours away from her sisters. With the patient's decline overnight, Remedios states to hold off on any procedure or surgery. She will talk with her sisters and call me back around 3 to tell us their final decsion on comfort or aggressive measures.
--- NOTE | 2022-04-02 11:16 | NUR ---
Lalita, Palliative Care and Cleo HARDY updated this Social Work Job Titles on patient medical status; awaiting cardiology and surgery consult. Family is at bedside discussing preferences for patient care. Social Work Job Titles remains available for family emotional support and decision-making and care planning in collaboration with the treatment team.
--- NOTE | 2022-04-02 11:20 | NUR ---
PICC intact right upper arm with large amount of serrous light red drainage under the dressing. Sterile dressing change done with insertion site cleansed with chloraprep x 1, chlorhexidine impregnated disk applied, skin prep, stat lock, and tegaderm applied. extra tegaderm applied on top of dressing. extra 4 x 4s applied under extension sets to proctect patient's skin. ABD applied on top of dressing and secured with 2 gunner wraps. skin is seeping. arms are edematous.
--- NOTE | 2022-04-02 12:48 | NUR ---
Initial visit; Patient continues to be on the Ventilator; Glass Blowing Lathe Operator offered prayer by bedside. Patient made a sound, perhaps reacting to prayer or another stimulus. Glass Blowing Lathe Operator offered God's Blessings and Peace.
--- NOTE | 2022-04-02 14:36 | NUR ---
Received call from patient's daughter, Remedios. Family requests to continue care/supportive measures until they are able to see the patient Tuesday. They specifically asked to keep her on the BiPAP. When asked about stopping blood pressure support medications and moving to comfort care, family again stated to wait until they are able to be at bedside Tuesday, 04/06. Notified SW and primary RN. Family again confirmed no procedures/surgery/dialysis; discussed that there is still the possibility of the patient passing before family can arrive and they verbalized understanding.
--- NOTE | 2022-04-02 21:40 | NUR ---
BEDSIDE SHIFT REPORT RECEIVED FROM ANTONY RUDD. PT CURRENTLY RESTING IN BED. BIPAP SETTINGS ACCORDING TO REPORT. LINES RUNNING ACCORDING TO REPORT (SEE DRIP FLOW SHEET). PRESLEY DRAINING APPROPRIATELY. VSS. NO ACUTE CHANGES NOTED AT THIS TIME
[2022-04-02 23:05] LABS: HEPATITIS B SURFACE ANTIBODY <2.0 (()); HEPATITIS B SURFACE ANTIGEN Negative (Negative); HEPATITIS C VIRUS ANTIBODY Negative (Negative)
[2022-04-03] VITALS (1144 sets, daily range): BP systolic 76–104; BP diastolic 28–75; PULSE 78–101; TEMP 31.6–36.3; O2SAT 79–100
[2022-04-03 05:39] LABS: BASO % 0.1 % (0.0-2.0); GRAN # 12.4 K/mm3 (1.4-6.5); GRAN % 92.3 % (42.2-75.2); LYMPH # 0.3 K/mm3 (1.2-3.4); LYMPH % 2.5 % (20.0-51.0); MEAN CELL VOLUME 104 fl (80.0-100.0); MEAN CORPUSCULAR HGB CONC 33 g/dl (33.0-37.0); MEAN PLATELET VOLUME 11.1 fl (7.4-10.4); MONO # 0.6 K/mm3 (0.1-0.6); MONO % 4.8 % (1.7-9.3); PLATELET COUNT 145 K/mm3 (130-400); RED BLOOD COUNT 2.18 M/mm3 (4.10-5.30); REDCELL DISTRIBUTION WIDTH-CV 16.5 % (11.5-14.5)
[2022-04-03 05:53] LABS: HEMATOCRIT 22.7 % (37.0-47.0); HEMOGLOBIN 7.4 g/dl (12.5-16.0); MEAN CORPUSCULAR HEMOGLOBIN 34 pg (27-31)
[2022-04-03 06:04] LABS: CALCIUM 7.7 mg/dL (8.4-10.2); POTASSIUM 5.2 mmol/L (3.5-4.5)
[2022-04-03 06:24] LABS: CREATININE, serum 5.26 mg/dL (0.57-1.11)
--- NOTE | 2022-04-03 19:12 | NUR ---
PT ASSESSMENT COMPLETED THIS MORNING AT 0930. BLOOD PRESSURE WAS LOW THROUGHOUT THE DAY. INCREASED LEVOPHED PER ORDERS. PT PLACED ON BEAR HUGGER AFTER DISCUSSING LOW TEMP WITH HOSPITALIST. CURRENT TEMP IS 36.2. REPORT GIVEN TO ONCOMING NURSE.
--- NOTE | 2022-04-03 20:09 | NUR ---
PT CURRENTLY ON BIPAP AT THIS TIME. SHE IS LAYING IN BED WITH RAILS X4 UP. PT WAS UNABLE TO ANSWER QUESTIONS OR RESPOND TO COMMANDS. BIPAP SOUNDS HEARD THROUGHOUT ALL LUNG HERNANDEZ. NO FAMILY IN ROOM AT THIS TIME. BIPAP AT SIDE OF BED WHEELS ON BIPAP ARE LOCKED. NO COMPLAINTS VOICED BY PT REFERRAL MANAGEMENT LIAISON. PT CURRENTLY WEARING HEATING BLANKETTEMP READS 38 DEGREES CELSIUS.
--- NOTE | 2022-04-03 20:28 | NUR ---
PT RESTING IN BED COMFORTABLY. BIPAP CHANGED TO OTHER SIDE OF ROOM TO ALLOW FOR BETTER ACCESS OF IV AND IV POLE. NO COMPLICATIONS. DUE TO FACIAL REDNESS AND BREAK DOWN PT FULL FACE MASK CHANGED TO PERFORMAX MASK. TOLERATING WELL. RN NOTIFIED OF CHANGES. NO SIGNS OF DISTRESS.NO COMPLICATIONS CHANGEING MASK. O2 HOOKED BACK UP TO WALL UNIT. BIPAP RAN ON O2 TANK THAT WAS MOSTLY FULL WHILE TRANSITIONING BIPAP TO OTHER SIDE OF BED
--- NOTE | 2022-04-03 21:48 | NUR ---
BEDSIDE SHIFT REPORT RECEIVED FROM ANTONY MINA. BIPAP ACCORDING TO REPORT. ALL LINES ACCORDING TO REPORT (SEE DRIP FLOW SHEET). FLOLEY DRAINING APPROPRIATELY.
[2022-04-04] VITALS (648 sets, daily range): BP systolic 92–104; BP diastolic 55–64; PULSE 60–115; TEMP 36.5–38; O2SAT 36–100
[2022-04-04 05:27] LABS: MEAN CELL VOLUME 104 fl (80.0-100.0); MEAN CORPUSCULAR HGB CONC 31 g/dl (33.0-37.0); MEAN PLATELET VOLUME 11.4 fl (7.4-10.4); PLATELET COUNT 145 K/mm3 (130-400); RED BLOOD COUNT 2.02 M/mm3 (4.10-5.30); REDCELL DISTRIBUTION WIDTH-CV 16.1 % (11.5-14.5)
[2022-04-04 05:29] LABS: HEMOGLOBIN 6.6 g/dl (12.5-16.0); MEAN CORPUSCULAR HEMOGLOBIN 33 pg (27-31)
[2022-04-04 05:41] LABS: CREATININE, serum 5.24 mg/dL (0.57-1.11); POTASSIUM 5.4 mmol/L (3.5-4.5)
[2022-04-04 05:56] LABS: BAND 1 % (0-10); LYMPHOCYTE 2 % (20.0-51.0); NEUTROPHILS 94 % (42.0-75.2); NUCLEATED RED BLOOD CELL 1 (0-6); PLATELET ESTIMATE NORMAL (NORMAL)
[2022-04-04 05:57] LABS: ANISOCYTOSIS 1+; HYPOCHROMIA 2+
--- NOTE | 2022-04-04 08:00 | NUR ---
PT ASSESSMENT COMPLETE. VSS. PT READJUSTED IN BED AND CHUCKS CHANGED. REMOVED BEAR HUGGER PER NORMAL BODY TEMPERATURE.
--- NOTE | 2022-04-04 10:00 | NUR ---
PT UNABLE TO ANSWER SUICIDAL ASSESSMENT QUESTIONS.
--- NOTE | 2022-04-04 15:35 | NUR ---
SW informed by nurse for patient that she now has orders for comfort care orders. Nurse informed SW that patient's sister has been informed that daughters made decision. Nothing further.
--- NOTE | 2022-04-04 15:50 | NUR ---
PT PUT ON COMFORT CARE.
--- NOTE | 2022-04-04 15:50 | NUR ---
RT CALLED TO BEDSIDE TO PROCEED WITH COMFORT CARE MEASURES, BIPAP WAS REMOVED AT 1547 WITH RN AT BEDSIDE.
--- NOTE | 2022-04-04 15:52 | NUR ---
PT PUT ON COMFORT CARE.
--- NOTE | 2022-04-04 16:26 | NUR ---
PTS VITAL SIGNS CEASED. NO HEART SOUNDS AUDIBLE WHEN AUSCULTATED. FUSE COILER NOTIFIED. HOSPITALIST NOTIFIED. DAUGHTER NOTIFIED. TIME OF 1625.
--- NOTE | 2022-04-04 16:53 | NUR ---
PRN notified of , patient not a candidate, referral number [id number]. Family has chosen [facility] home in [place].
--- NOTE | 2022-04-04 17:58 | NUR ---
HOME LEFT UNIT WITH THE BODY AT 1758.
== END 2022-04-04 17:58 | disposition expired | DRG 682 ==
LOC: COL.ER 09:24 → SURG 10:18 → ICU 10:18
PROVIDERS: Family Medicine; Physician Assistant; Registered Nurse; Student in an Organized Health Care Education/Training Program; ADMIT Internal Medicine
PROC: 02H633Z Insertion of Infusion Device into Right Atrium, Percutaneous Approach (ICD-10-PCS; principal; 2022-03-31)
PROC: 3E043XZ Introduction of Vasopressor into Central Vein, Percutaneous Approach (ICD-10-PCS; 2022-03-31)
DX: N17.9 Acute kidney failure, unspecified (principal); S72.141A Displaced intertrochanteric fracture of right femur, initial encounter for closed fracture; I50.23 Acute on chronic systolic (congestive) heart failure; J96.02 Acute respiratory failure with hypercapnia; J96.01 Acute respiratory failure with hypoxia; G93.40 Encephalopathy, unspecified; D62 Acute posthemorrhagic anemia; I42.9 Cardiomyopathy, unspecified; J91.8 Pleural effusion in other conditions classified elsewhere; N39.0 Urinary tract infection, site not specified; I13.2 Hypertensive heart and chronic kidney disease with heart failure and with stage 5 chronic kidney disease, or end stage renal disease; I48.20 Chronic atrial fibrillation, unspecified; Z66 Do not resuscitate; Z51.5 Encounter for palliative care; N18.6 End stage renal disease; I27.20 Pulmonary hypertension, unspecified; I25.10 Atherosclerotic heart disease of native coronary artery without angina pectoris; J44.9 Chronic obstructive pulmonary disease, unspecified; D53.9 Nutritional anemia, unspecified; M10.9 Gout, unspecified; D50.9 Iron deficiency anemia, unspecified; E11.22 Type 2 diabetes mellitus with diabetic chronic kidney disease; E11.21 Type 2 diabetes mellitus with diabetic nephropathy; I95.9 Hypotension, unspecified; K21.9 Gastro-esophageal reflux disease without esophagitis; Z20.822 Contact with and (suspected) exposure to COVID-19; D63.1 Anemia in chronic kidney disease; W01.0XXA Fall on same level from slipping, tripping and stumbling without subsequent striking against object, initial encounter; G25.81 Restless legs syndrome; E78.5 Hyperlipidemia, unspecified; D72.829 Elevated white blood cell count, unspecified; R57.0 Cardiogenic shock; B95.2 Enterococcus as the cause of diseases classified elsewhere; T68.XXXA Hypothermia, initial encounter; Z99.81 Dependence on supplemental oxygen; Z79.01 Long term (current) use of anticoagulants; Z90.710 Acquired absence of both cervix and uterus; Z88.5 Allergy status to narcotic agent; Z88.0 Allergy status to penicillin; Y93.89 Activity, other specified; Y92.89 Other specified places as the place of occurrence of the external cause; Z79.82 Long term (current) use of aspirin; Z23 Encounter for immunization
CPT/HCPCS: A9284; C1751; J0692; J1170; J2060; J2270; J7030; J7060; J7512; P9016